=== PATIENT | male | born 1995 | race Caucasian/White ===

== ENCOUNTER 2021-01-07 23:12 | Emergency (ER) | payer OTHER ==
[~2021-01-07 23:12] MED LIST: PREDNISONE 20 M20 MG PO; ZOVIRAX 200 MG200 MG PO
[2021-01-08] MEDS ORDERED: VALTREX1000 MG PO (02:15)
[2021-01-08] MEDS ORDERED: MEDROL DOSEPAK 24 MG PO (02:15)
== END 2021-01-08 02:33 | disposition home or self-care (01) ==
LOC: ER1 23:12
DX: G51.0 Bell's palsy (principal); Z20.822 Contact with and (suspected) exposure to COVID-19
CPT/HCPCS: 99284; U0002